=== PATIENT | female | born 1965 | race Caucasian/White ===

== ENCOUNTER → 2021-12-26 | Outpatient (CLI) | payer BC | LOC: RAD 16:10 | DX: M17.12 Unilateral primary osteoarthritis, left knee (principal) ==

== ENCOUNTER 2022-03-18 11:44 | Emergency (ER) | payer BC ==
[~2022-03-18] VITALS: Ht 172.7 cm; Wt 104.5 kg
[2022-03-18] MEDS ORDERED: ZYRTEC10 M3 PO (11:58)
[2022-03-18 12:22] LABS: BASO # 0.03 K/mm3 (0.02-0.10); HEMATOCRIT 48.6 % (37.0-47.0); HEMOGLOBIN 16.2 g/dL (12.5-16.0); LYMPH# 1.86 K/mm3 (1.50-4.00); MEAN CELL VOLUME 87 fl (78-100); MEAN CORPUSCULAR HEMOGLOBIN 29 pg (27-31); MEAN CORPUSCULAR HGB CONC 33 g/dL (33-37); MEAN PLATELET VOLUME 11.5 fl (7.4-10.4); MONO # 0.31 K/mm3 (0.20-0.80); NEU # 3.51 K/mm3 (1.40-6.50); PLATELET COUNT 213 K/mm3 (130-400); RED BLOOD COUNT 5.62 M/mm3 (4.10-5.30); RED CELL DISTRIBUTION WIDTH 12.4 % (11.5-14.5)
[2022-03-18 12:27] LABS: URINE APPEARANCE HAZY; URINE COLOR YELLOW
[2022-03-18 12:27] LABS: ALBUMIN 3.9 g/dL (3.5-5.0); POTASSIUM 4.1 mmol/L (3.5-5.1)
[2022-03-18 12:28] LABS: CALCIUM 9.5 mg/dL (8.3-10.5)
[2022-03-18 12:28] LABS: URINE BILIRUBIN NEGATIVE (NEGATIVE); URINE BLOOD TRACE (NEGATIVE); URINE GLUCOSE NEGATIVE (NEGATIVE); URINE KETONE NEGATIVE (NEGATIVE); URINE NITRATE NEGATIVE (NEGATIVE); URINE PROTEIN(semi-quant) TRACE (NEGATIVE); URINE UROBILINOGEN NORMAL (NORMAL)
[2022-03-18 12:29] LABS: TOTAL PROTEIN 6.7 g/dL (6.4-8.3)
[2022-03-18 12:29] LABS: URINE LEUKOCYTE ESTERASE 1+ (NEGATIVE)
[2022-03-18 12:31] LABS: TOTAL BILIRUBIN 0.6 mg/dL (0.2-1.2)
[2022-03-18] MEDS ORDERED: SEPTRA DS 8001 TAB PO (12:46)
[2022-03-18 12:56] VITALS: BP 104/71
--- NOTE | 2022-03-20 16:41 | NUR ---
Patient called for urine culture results. Per Heber Merrill PA-C no changes in antibiotics needed.
== END 2022-03-18 13:03 | disposition home or self-care (01) ==
LOC: ED 11:44
PROVIDERS: Family Medicine
DX: N39.0 Urinary tract infection, site not specified (principal); Z88.0 Allergy status to penicillin; Z87.442 Personal history of urinary calculi